=== PATIENT | female | born 1990 | race American Indian/Alaskan Native ===

== ENCOUNTER 2018-10-01 21:55 | Emergency (ER) | payer SELFPAY ==
[2018-10-01 22:14] VITALS: BP 107/55
== END 2018-10-01 23:00 | disposition left against medical advice (07) ==
LOC: ED 21:55
DX: R53.1 Weakness (principal); Z53.21 Procedure and treatment not carried out due to patient leaving prior to being seen by health care provider

== ENCOUNTER 2019-06-01 10:57 | Emergency (ER) | payer SELFPAY ==
[2019-06-01 11:06] VITALS: BP 140/103
--- NOTE | 2019-06-01 11:06 | Emergency Department Report ---
Blank Doc - Documentation Documentation: This is a 29-year-old female that presents with cough with some chest pain that is worsening with coughing. Also has congestions. This initial assessment/diagnostic orders/clinical plan/treatment(s) is/are subject to change based on patient's health status, clinical progression and re- assessment by fellow clinical providers in the ED. Further treatment and workup at subsequent clinical providers discretion. Patient/guardians urged not to elope from the ED as their condition may be serious if not clinically assessed and managed. Initial orders include: 1- Patient sent to [facility] for further evaluation and treatment 2- CXR
--- NOTE | 2019-06-01 11:44 | Emergency Department Report ---
HPI - General Chief Complaint: Dyspnea/Respdistress Time Seen by Provider: 06/01/19 11:04 - HPI HPI: 29 yo with non specific complaints of cough which causes chest pain and prolonged menses. She is new to the area and has no pcp. She is suppose to be on albuterol but ran out. BP 140/103 on admit- no hx HTN ED Past Medical Hx - Past Medical History Previous Medical History?: Yes Hx Asthma: Yes Additional medical history: obese - Surgical History Past Surgical History?: Yes Additional Surgical History: tubal ligation. C section - Family History Family history: no significant - Social History Smoking Status: Never Smoker Substance Use Type: None ED Review of Systems ROS: Stated complaint: CHEST PAIN/HEADACHES/FATIQUE Other details as noted in HPI Comment: All other systems reviewed and negative Physical Exam - Physical Exam Vital Signs: Vital Signs 06/01/19 11:03 Temperature 98.7 F Pulse Rate 97 H Respiratory 18 Rate Blood Pressure 140/103 O2 Sat by Pulse 99 Oximetry ED Course Vital Signs 06/01/19 11:03 Temperature 98.7 F Pulse Rate 97 H Respiratory 18 Rate Blood Pressure 140/103 O2 Sat by Pulse 99 Oximetry ED Medical Decision Making - Lab Data Result diagrams: 06/01/19 12:41 - Radiology Data Radiology results: report reviewed, image reviewed - Medical Decision Making Vital Signs 06/01/19 11:03 Temperature 98.7 F Pulse Rate 97 H Respiratory 18 Rate Blood Pressure 140/103 O2 Sat by Pulse 99 Oximetry - Differential Diagnosis htn- ro KD; ro preg/uti; ro anemia of DUB Critical care attestation.: If time is entered above; I have spent that time in minutes in the direct care of this critically ill patient, excluding procedure time. ED Disposition Clinical Impression: Abnormal menses Disposition: - TO HOME OR SELFCARE Is pt being admited?: No Does the pt Need Aspirin: No Condition: Stable Additional Instructions: PREG NEG BLOOD WORK AND XRAY NORMAL FOLLOW UP WITH PCP AND OR OBGYN IF YOUR PROBLEMS PERSIST MOTRIN OR TYLENOL FOR PAIN MONITOR YOUR BLOOD PRESSURE- IT WAS ELEVATED TODAY Referrals: CHLOE CESAR MD [Staff Physician] - 3-5 Days [facility] [Outside] - 3-5 Days KENISHA JAQUEZ MD [Staff Physician] - 3-5 Days Time of Disposition: 11:46
[2019-06-01 11:50] LABS: Bilirubin,Urine NEG (Negative); Blood,Urine NEG (Negative); Color,Urine Yellow (Yellow); Mucus,Urine FEW /HPF; Protein,Urine <15 mg/dL mg/dL (Negative); WBC,Urine < 1.0 /HPF (0.0-6.0)
[2019-06-01 11:57] LABS: HCG Qualitative,Urine Negative (Negative)
[2019-06-01 13:15] LABS: Hematocrit 36.8 % (30.3-42.9); Hemoglobin 11.4 gm/dl (10.1-14.3); Mean Corpuscular HGB Conc 31 % (30-34); Mean Corpuscular Volume 82 fl (79-97); Platelet Count 360 K/mm3 (140-440); Red Blood Count 4.47 M/mm3 (3.65-5.03); Red Cell Distribution Width 16.8 % (13.2-15.2)
--- NOTE | 2019-06-01 13:19 | XRay Report ---
CHEST 2 VIEWS INDICATION: cough. COMPARISON: None. FINDINGS: Support devices: None. Heart: Within normal limits. Lungs/Pleura: No acute air space or interstitial disease. No significant pleural effusion. IMPRESSION: No acute findings. Signer Name: Leon Rodriguez MD Signed: 06/01/2019 1:15 PM Workstation Name: [id number]
[2019-06-01 13:29] LABS: BUN/Creatinine Ratio 11; Blood Urea Nitrogen 8 mg/dL (7-17); Hemolysis Index 0
== END 2019-06-01 13:43 | disposition home or self-care (01) ==
LOC: ED 10:57
DX: N92.0 Excessive and frequent menstruation with regular cycle (principal); J45.909 Unspecified asthma, uncomplicated; Z98.51 Tubal ligation status; Z98.890 Other specified postprocedural states
CPT/HCPCS: 36415; 71046; 80048; 81001; 81025; 85027; 99283

== ENCOUNTER 2019-08-07 16:09 | Emergency (ER) | payer MEDICAID | END 2019-08-07 18:30 | disposition left against medical advice (07) | LOC: ED 16:09 | DX: R06.02 Shortness of breath (principal); R07.89 Other chest pain; Z53.21 Procedure and treatment not carried out due to patient leaving prior to being seen by health care provider ==

== ENCOUNTER 2019-08-12 19:00 | Emergency (ER) | payer MEDICAID ==
[2019-08-12 19:12] VITALS: BP 128/96
--- NOTE | 2019-08-12 21:38 | Emergency Department Report ---
ED Dysuria HPI - HPI Chief Complaint: Urogenital-Female Stated Complaint: UTI Time Seen by Provider: 08/12/19 21:28 Duration: 2 Days Location of Discomfort: Urethra (dysuria) Severity: Mild Symptoms: Dysuria: Yes, Frequency: Yes, Suprapubic Pain: No, Flank Pain: No, Fever: No, Hematuria: No, Abdominal Pain: No, Previous UTI's: Yes Other History: There is a 29-year-old female presents to the ED complaining of dysuria and urinary frequency 3 days. She states that she gets UTIs frequently. ED Review of Systems ROS: Stated complaint: UTI Other details as noted in HPI Comment: All other systems reviewed and negative ED Past Medical Hx - Past Medical History Previous Medical History?: Yes Hx Asthma: Yes Additional medical history: obese - Surgical History Past Surgical History?: Yes Additional Surgical History: tubal ligation. C section - Social History Smoking Status: Never Smoker Substance Use Type: None - Medications Home Medications: Home Medications Medication Instructions Recorded Confirmed Last Taken Type Ciprofloxacin HCl [Ciprofloxacin 500 mg PO Q12HR #14 tab 08/12/19 Unknown Rx TAB] Ibuprofen [Motrin] 800 mg PO Q8HR #30 tablet 08/12/19 Unknown Rx Dysuria Exam - Exam General: Vital signs noted. No distress. Alert and acting appropriately. Exam: Yes Moist Mucous Membranes, No CVA Tenderness, No Abdominal Tenderness, No Rigidity or Guarding ED Course Vital Signs 08/12/19 08/12/19 19:10 19:11 Temperature 98.0 F Pulse Rate 90 Respiratory 18 Rate Blood Pressure 128/96 O2 Sat by Pulse 98 Oximetry ED Medical Decision Making - Medical Decision Making 29-year-old female presents with dysuria. Patient will be treated for UTI since she gets a little grade currently. She did not have any abdomen tenderness or fever or nausea vomiting or any other symptoms. Patient understands instructions and states she will follow up with her primary care physician. At this time patient will be discharged home with antibiotics. Critical care attestation.: If time is entered above; I have spent that time in minutes in the direct care of this critically ill patient, excluding procedure time. ED Disposition Clinical Impression: Dysuria Disposition: DC-01 TO HOME OR SELFCARE Is pt being admited?: No Does the pt Need Aspirin: No Condition: Stable Instructions: Urinary Tract Infection in Women (ED) Additional Instructions: Follow up with pcp Prescriptions: Ciprofloxacin HCl [Ciprofloxacin TAB] 500 mg PO Q12HR #14 tab Ibuprofen [Motrin] 800 mg PO Q8HR #30 tablet [facility]Outside[facility] - 3-5 Days Forms: Accompanied Note, Work/School Release Form(ED) Time of Disposition: 21:43
== END 2019-08-12 22:00 | disposition home or self-care (01) ==
LOC: ED 19:00
DX: N39.0 Urinary tract infection, site not specified (principal); J45.909 Unspecified asthma, uncomplicated; Z98.51 Tubal ligation status; Z79.1 Long term (current) use of non-steroidal anti-inflammatories (NSAID)
CPT/HCPCS: 99281

== ENCOUNTER 2019-10-10 09:31 | Emergency (ER) | payer MEDICAID ==
[2019-10-10 09:50] VITALS: BP 129/94
[2019-10-10] MEDS ORDERED: ASPIRIN 325 MG TAB PO ONE (10:48)
--- NOTE | 2019-10-10 11:37 | XRay Report ---
CHEST 2 VIEWS INDICATION / CLINICAL INFORMATION: Chest Pain. COMPARISON: Chest x-ray on 06/01/2019. FINDINGS: SUPPORT DEVICES: None. HEART / MEDIASTINUM: No significant abnormality. LUNGS / PLEURA: No significant pulmonary or pleural abnormality. No pneumothorax. ADDITIONAL FINDINGS: No significant additional findings. IMPRESSION: 1. No acute findings. Signer Name: Kael Kaur MD Signed: 10/10/2019 11:32 AM Workstation Name: [id number]
[2019-10-10 12:11] LABS: Basophils # (Auto) 0.1 K/mm3 (0.0-0.1); Basophils % (Auto) 0.7 % (0.0-1.8); Eosinophils # (Auto) 0.2 K/mm3 (0.0-0.4); Eosinophils % (Auto) 2.2 % (0.0-4.3); Hematocrit 33.5 % (30.3-42.9); Hemoglobin 10.8 gm/dl (10.1-14.3); Lymphocytes # (Auto) 2.5 K/mm3 (1.2-5.4); Lymphocytes % (Auto) 25.9 % (13.4-35.0); Mean Corpuscular HGB Conc 32 % (30-34); Mean Corpuscular Volume 81 fl (79-97); Monocytes # (Auto) 0.5 K/mm3 (0.0-0.8); Platelet Count 333 K/mm3 (140-440); Red Blood Count 4.13 M/mm3 (3.65-5.03); Red Cell Distribution Width 17.1 % (13.2-15.2)
[2019-10-10 12:32] LABS: BUN/Creatinine Ratio 13; Blood Urea Nitrogen 8 mg/dL (7-17); Calcium 9.2 mg/dL (8.4-10.2); Hemolysis Index 6
[2019-10-10] MEDS ORDERED: dexAMETHasone 20 MG/5 ML VIAL IV ONE (14:21)
[2019-10-10] MEDS ORDERED: KETOROLAC 30 MG/1 ML INJ IV ONE (14:22)
--- NOTE | 2019-10-10 15:15 | Vascular Lab Report ---
DUPLEX DOPPLER LOWER EXTREMITY VEINS, BILATERAL INDICATION: pain, swelling. TECHNIQUE: Duplex doppler imaging was performed through the veins of both lower extremities using venous dede freddie and other maneuvers. COMPARISON: None available. FINDINGS: Right Common femoral vein: Negative. Right Superficial femoral vein: Negative. Right Popliteal vein: Negative. Right Calf veins: Negative. Left Common femoral vein: Negative. Left Superficial femoral vein: Negative. Left Popliteal vein: Negative. Left Calf veins: Negative. Additional findings: None. IMPRESSION: 1. No sonographic evidence for DVT in either lower extremity. Signer Name: Otis Beck MD Signed: 10/10/2019 1:11 PM Workstation Name: [id number]
[2019-10-10 15:23] LABS: Bilirubin,Urine NEG (Negative); Blood,Urine LG (Negative); Color,Urine Yellow (Yellow); Mucus,Urine FEW /HPF; Protein,Urine <15 mg/dL mg/dL (Negative); RBC,Urine > 182.0 /HPF (0.0-6.0); Urobilinogen,Urine < 2.0 mg/dL (<2.0)
[2019-10-10 15:27] LABS: HCG Qualitative,Urine Negative (Negative)
--- NOTE | 2019-10-10 15:39 | Emergency Department Report ---
ED Chest Pain HPI - General Chief Complaint: Chest Pain Stated Complaint: LFT LEG /LFT ANKLE SWELLING/PAIN Time Seen by Provider: 10/10/19 13:50 Source: patient Mode of arrival: Ambulatory Limitations: No Limitations - History of Present Illness Initial Comments: 29-year-old -[place] female with history of endometriosis presents with complaints of right-sided chest pain intermittently for 3 years and bilateral lower leg swelling 1 week. She denies any shortness of breath, history of DVT/PE, recent surgeries, oral contraceptives, smoking, or recent long travel. Patient states she has been evaluated multiple times for this chest pain and has not gotten any answers as to why she is having this chest pain. She states it feels like a stabbing type pain and hurts to touch. Patient states she is supposed to follow-up with a city sanitarian. Patient also states pain improves with ibuprofen. She denies any chest wall injuries or heavy lifting. She rates her pain as a 8/10 in severity and both her chest and legs MD Complaint: chest pain -: Sudden Severity scale (0 -10): 0 - Related Data Previous Rx's Medication Instructions Recorded Last Taken Type Ciprofloxacin HCl [Ciprofloxacin 500 mg PO Q12HR #14 tab 08/12/19 Unknown Rx TAB] Ibuprofen [Motrin] 800 mg PO Q8HR #30 tablet 08/12/19 Unknown Rx Allergies Allergy/AdvReac Type Severity Reaction Status Date / Time Penicillins Allergy Unknown Verified 08/07/19 16:26 Heart Score - HEART Score History: Slightly suspicious EKG: Normal Age: < 45 Risk factors: 1-2 risk factors Troponin: < normal limit HEART Score: 1 - Critical Actions Critical Actions: 0-3 pts:0.9-1.7%risk of adverse cardiac event.Candidate for discharge ED Review of Systems ROS: Stated complaint: LFT LEG /LFT ANKLE SWELLING/PAIN Other details as noted in HPI Comment: All other systems reviewed and negative Constitutional: denies: chills, fever Eyes: denies: vision change Respiratory: denies: cough, orthopnea, shortness of breath Cardiovascular: chest pain. denies: palpitations, dyspnea on exertion Gastrointestinal: denies: abdominal pain Genitourinary: frequency. denies: dysuria Musculoskeletal: denies: back pain Neurological: denies: headache, weakness, paresthesias Hematological/Lymphatic: denies: easy bleeding, easy bruising ED Past Medical Hx - Past Medical History Hx Asthma: Yes Additional medical history: endometriosis - Surgical History Past Surgical History?: Yes Additional Surgical History: tubal ligation. C section - Social History Smoking Status: Never Smoker Substance Use Type: None - Medications Home Medications: Home Medications Medication Instructions Recorded Confirmed Last Taken Type Ciprofloxacin HCl [Ciprofloxacin 500 mg PO Q12HR #14 tab 08/12/19 Unknown Rx TAB] Ibuprofen [Motrin] 800 mg PO Q8HR #30 tablet 08/12/19 Unknown Rx ED Physical Exam - General Limitations: No Limitations General appearance: alert, in no apparent distress - Head Head exam: Present: atraumatic, normocephalic - Eye Eye exam: Present: normal appearance. Absent: scleral icterus - ENT ENT exam: Present: mucous membranes moist - Neck Neck exam: Present: normal inspection - Respiratory Respiratory exam: Present: normal lung sounds bilaterally. Absent: respiratory distress - Cardiovascular Cardiovascular Exam: Present: regular rate, normal rhythm. Absent: systolic murmur, diastolic murmur, rubs, gallop - GI/Abdominal GI/Abdominal exam: Present: soft, normal bowel sounds - Extremities Exam Extremities exam: Present: full ROM, pedal edema (mild bilateral), calf tenderness (bilateral with mild nonpitting edema; no erythema noted; normal pedal pulses palpated bilaterally) - Back Exam Back exam: Present: normal inspection. Absent: CVA tenderness (R), CVA tenderness (L) - Neurological Exam Neurological exam: Present: alert, oriented X3, normal gait - Psychiatric Psychiatric exam: Present: normal affect, normal mood - Skin Skin exam: Present: warm, dry, intact, normal color. Absent: rash ED Course Vital Signs 10/10/19 09:49 Temperature 98.2 F Pulse Rate 82 Respiratory 16 Rate Blood Pressure 129/94 [Right] O2 Sat by Pulse 99 Oximetry ED Medical Decision Making - Lab Data Result diagrams: 10/10/19 11:46 10/10/19 11:46 Lab Results 10/10/19 10/10/19 10/10/19 Range/Units 11:46 11:46 13:45 WBC 9.7 (4.5-11.0) K/mm3 RBC 4.13 (3.65-5.03) M/mm3 Hgb 10.8 (10.1-14.3) gm/dl Hct 33.5 (30.3-42.9) % MCV 81 (79-97) fl MCH 26 L (28-32) pg MCHC 32 (30-34) % RDW 17.1 H (13.2-15.2) % Plt Count 333 (140-440) K/mm3 Lymph % (Auto) 25.9 (13.4-35.0) % [place] % (Auto) 5.0 (0.0-7.3) % Eos % (Auto) 2.2 (0.0-4.3) % Baso % (Auto) 0.7 (0.0-1.8) % Lymph # 2.5 (1.2-5.4) K/mm3 [place]rie # 0.5 (0.0-0.8) K/mm3 Eos # 0.2 (0.0-0.4) K/mm3 Baso # 0.1 (0.0-0.1) K/mm3 Seg Neutrophils % 66.2 (40.0-70.0) % Seg Neutrophils # 6.4 (1.8-7.7) K/mm3 Sodium 138 (137-145) mmol/L Potassium 3.9 (3.6-5.0) mmol/L Chloride 101.1 (98-107) mmol/L Carbon Dioxide 24 (22-30) mmol/L Anion Gap 17 mmol/L BUN 8 (7-17) mg/dL Creatinine 0.6 L (0.7-1.2) mg/dL Estimated GFR > 60 ml/min BUN/Creatinine Ratio 13 % Glucose 72 (65-100) mg/dL Calcium 9.2 (8.4-10.2) mg/dL Troponin T < 0.010 < 0.010 (0.00-0.029) ng/mL Urine Color (Yellow) Urine Turbidity (Clear) Urine pH (5.0-7.0) Ur Specific [place] (1.003-1.030) Urine Protein (Negative) mg/dL Urine Glucose (UA) (Negative) mg/dL Urine Ketones (Negative) mg/dL Urine Blood (Negative) Urine Nitrite (Negative) Urine Bilirubin (Negative) Urine Urobilinogen (<2.0) mg/dL Ur Leukocyte Esterase (Negative) Urine WBC (Auto) (0.0-6.0) /HPF Urine RBC (Auto) (0.0-6.0) /HPF U Epithel Cells (Auto) (0-13.0) /HPF Urine Mucus /HPF Urine Yeast (Budding) /HPF Urine HCG, Qual (Negative) 10/10/19 Range/Units 15:09 WBC (4.5-11.0) K/mm3 RBC (3.65-5.03) M/mm3 Hgb (10.1-14.3) gm/dl Hct (30.3-42.9) % MCV (79-97) fl MCH (28-32) pg MCHC (30-34) % RDW (13.2-15.2) % Plt Count (140-440) K/mm3 Lymph % (Auto) (13.4-35.0) % Erie % (Auto) (0.0-7.3) % Eos % (Auto) (0.0-4.3) % Baso % (Auto) (0.0-1.8) % Lymph # (1.2-5.4) K/mm3 [place] # (0.0-0.8) K/mm3 Eos # (0.0-0.4) K/mm3 Baso # (0.0-0.1) K/mm3 Seg Neutrophils % (40.0-70.0) % Seg Neutrophils # (1.8-7.7) K/mm3 Sodium (137-145) mmol/L Potassium (3.6-5.0) mmol/L Chloride (98-107) mmol/L Carbon Dioxide (22-30) mmol/L Anion Gap mmol/L BUN (7-17) mg/dL Creatinine (0.7-1.2) mg/dL Estimated GFR ml/min BUN/Creatinine Ratio % Glucose (65-100) mg/dL Calcium (8.4-10.2) mg/dL Troponin T (0.00-0.029) ng/mL Urine Color Yellow (Yellow) Urine Turbidity Slightly-cloudy (Clear) Urine pH 7.0 (5.0-7.0) Ur Specific [place] 1.012 (1.003-1.030) Urine Protein <15 mg/dl (Negative) mg/dL Urine Glucose (UA) Neg (Negative) mg/dL Urine Ketones Neg (Negative) mg/dL Urine Blood Lg (Negative) Urine Nitrite Neg (Negative) Urine Bilirubin Neg (Negative) Urine Urobilinogen < 2.0 (<2.0) mg/dL Ur Leukocyte Esterase Tr (Negative) Urine WBC (Auto) 53.0 H (0.0-6.0) /HPF Urine RBC (Auto) > 182.0 (0.0-6.0) /HPF U Epithel Cells (Auto) 3.0 (0-13.0) /HPF Urine Mucus Few /HPF Urine Yeast (Budding) 2+ /HPF Urine HCG, Qual Negative (Negative) - Radiology Data Radiology results: report reviewed DUPLEX DOPPLER LOWER EXTREMITY VEINS, BILATERAL INDICATION: pain, swelling. TECHNIQUE: Duplex doppler imaging was performed through the veins of both lower extremities using venous compression and other maneuvers. COMPARISON: None available. FINDINGS: Right Common femoral vein: Negative. Right Superficial femoral vein: Negative. Right Popliteal vein: Negative. Right Calf veins: Negative. Left Common femoral vein: Negative. Left Superficial femoral vein: Negative. Left Popliteal vein: Negative. Left Calf veins: Negative. Additional findings: None. IMPRESSION: 1. No sonographic evidence for DVT in either lower extremity. CHEST 2 VIEWS INDICATION / CLINICAL INFORMATION: Chest Pain. COMPARISON: Chest x-ray on 06/01/2019. FINDINGS: SUPPORT DEVICES: None. HEART / MEDIASTINUM: No significant abnormality. LUNGS / PLEURA: No significant pulmonary or pleural abnormality. No pneumothorax. ADDITIONAL FINDINGS: No significant additional findings. IMPRESSION: 1. No acute findings. Critical care attestation.: If time is entered above; I have spent that time in minutes in the direct care of this critically ill patient, excluding procedure time. ED Disposition Clinical Impression: Localized swelling of both lower legs, Costochondritis UTI (urinary tract infection) Qualifiers: Urinary tract infection type: site unspecified Hematuria presence: without hematuria Qualified Code(s): N39.0 - Urinary tract infection, site not specified Disposition: ELOPED Is pt being admited?: No Condition: Stable Referrals: PRIMARY CARE, [Primary Care Provider] - 3-5 Days
== END 2019-10-10 15:40 | disposition left against medical advice (07) ==
LOC: ED 09:31
DX: M94.0 Chondrocostal junction syndrome [Tietze] (principal); N39.0 Urinary tract infection, site not specified; J45.909 Unspecified asthma, uncomplicated; Z98.51 Tubal ligation status; Z79.899 Other long term (current) drug therapy; Z88.0 Allergy status to penicillin
CPT/HCPCS: 36415; 71046; 80048; 81001; 81025; 84484; 85025; 87086; 93005; 93010; 93970; J1100; J1885

== ENCOUNTER 2019-10-11 03:07 | Emergency (ER) | payer MEDICAID ==
--- NOTE | 2019-10-11 07:38 | Emergency Department Report ---
ED General Adult HPI - General Chief complaint: Chest Pain Stated complaint: SWELLING LT AND RT LEGS AND FEET Time Seen by Provider: 10/11/19 07:10 Source: patient Mode of arrival: Ambulatory Limitations: No Limitations - History of Present Illness Initial comments: This is a 29-year-old -[place] female who presents to the emergency room with bilateral lower extremity edema intermittent shortness of breath that is worse at night for 1 week. No significant past medical history of endometriosis. Patient states she was seen in this emergency room yesterday but could not stay for labs and imaging results. Patient states shortness of breath is resolved he usually only at night. She denies chest pain, palpitations, cough, fever, chills, numbness or tingling, DVT/PE, recent surgeries, oral contraceptives, smoking, or recent injury. Onset/Timin -: week(s) Location: lower extremity Associated Symptoms: shortness of breath Treatments Prior to Arrival: none - Related Data Previous Rx's Medication Instructions Recorded Last Taken Type Ciprofloxacin HCl [Ciprofloxacin 500 mg PO Q12HR #14 tab 08/12/19 Unknown Rx TAB] Ibuprofen [Motrin] 800 mg PO Q8HR #30 tablet 08/12/19 Unknown Rx Sulfamethoxazole/Trimethoprim 1 each PO BID #6 tablet 10/11/19 Unknown Rx [Bactrim DS TAB] Allergies Allergy/AdvReac Type Severity Reaction Status Date / Time Penicillins Allergy Unknown Verified 08/07/19 16:26 ED Review of Systems ROS: Stated complaint: SWELLING LT AND RT LEGS AND FEET Other details as noted in HPI Constitutional: denies: chills, fever Respiratory: denies: cough, shortness of breath, wheezing Cardiovascular: edema (bilateral lower extremity). denies: chest pain, palpitations Gastrointestinal: denies: abdominal pain, nausea, diarrhea Genitourinary: denies: discharge Skin: denies: rash, lesions Neurological: denies: headache, weakness, paresthesias Psychiatric: denies: anxiety, depression ED Past Medical Hx - Past Medical History Hx Asthma: Yes Additional medical history: endometriosis - Surgical History Additional Surgical History: tubal ligation. C section - Social History Smoking Status: Current Every Day Smoker Substance Use Type: None - Medications Home Medications: Home Medications Medication Instructions Recorded Confirmed Last Taken Type Ciprofloxacin HCl [Ciprofloxacin 500 mg PO Q12HR #14 tab 08/12/19 Unknown Rx TAB] Ibuprofen [Motrin] 800 mg PO Q8HR #30 tablet 08/12/19 Unknown Rx Sulfamethoxazole/Trimethoprim 1 each PO BID #6 tablet 10/11/19 Unknown Rx [Bactrim DS TAB] ED Physical Exam - General Limitations: No Limitations General appearance: alert, in no apparent distress, obese (morbidly) - ENT ENT exam: Present: mucous membranes moist - Respiratory Respiratory exam: Present: normal lung sounds bilaterally. Absent: respiratory distress - Cardiovascular Cardiovascular Exam: Present: regular rate, normal rhythm. Absent: systolic murmur, diastolic murmur, rubs, gallop - GI/Abdominal GI/Abdominal exam: Present: soft, normal bowel sounds. Absent: distended, tenderness, guarding, rebound, rigid - Extremities Exam Extremities exam: Present: full ROM, normal capillary refill (brisk), pedal edema (mild nonpitting edema, pedal pulses +2). Absent: joint swelling, calf tenderness - Neurological Exam Neurological exam: Present: alert, oriented X3, normal gait - Psychiatric Psychiatric exam: Present: normal affect, normal mood - Skin Skin exam: Present: warm, dry, intact, normal color. Absent: rash ED Course Vital Signs 10/11/19 10/11/19 03:14 03:15 Temperature 97.8 F 97.8 F Pulse Rate 72 71 Respiratory 18 16 Rate Blood Pressure 138/91 138/91 O2 Sat by Pulse 100 99 Oximetry ED Medical Decision Making - Radiology Data Radiology results: report reviewed - Medical Decision Making This is a 29-year-old -[place] female who presents to the emergency room with bilateral lower extremity edema. Vitals are stable and in no acute distress. Patient seen on yesterday but unable to stay for results. Labs, Doppler of bilateral lower extremity, and chest x-ray review. Signs of acute cystitis on urinalysis, troponins 2 negative, all of the labs are remarkable. Chest x-ray negative for acute cardiopulmonary findings, and No sonographic evidence for DVT in either lower extremity. Patient denies shortness of breath, chest pain, or palpitations. Patient will be treated for acute cystitis. Referral to PCP for follow-up. Strict return instructions given. Patient agreed with ER discharge plans. Patient discharged home stable. Return to work tomorrow. Critical care attestation.: If time is entered above; I have spent that time in minutes in the direct care of this critically ill patient, excluding procedure time. ED Disposition Clinical Impression: Localized swelling of both lower legs UTI (urinary tract infection) Qualifiers: Urinary tract infection type: acute cystitis Hematuria presence: with hematuria Qualified Code(s): N30.01 - Acute cystitis with hematuria Disposition: TO HOME OR SELFCARE Is pt being admited?: No Condition: Stable Instructions: Urinary Tract Infection in Women (ED) Additional Instructions: Increase fluid intake daily to 1-2 L. Complete full course of antibiotics as prescribed. Follow up with one of the primary care doctor's provided below. Return to the emergency room with worsening symptoms, such as chest pain, shortness of breath, or palpitations. Prescriptions: Sulfamethoxazole/Trimethoprim [Bactrim DS TAB] 1 each PO BID #6 tablet Referrals: EARL TEJEDA MD [Staff Physician] - 3-5 Days CHLOE CESAR MD [Staff Physician] - 3-5 Days Forms: Work/School Release Form(ED), Accompanied Note Time of Disposition: 08:15
[2019-10-11 08:25] VITALS: BP 128/88
== END 2019-10-11 08:25 | disposition home or self-care (01) ==
LOC: ED 03:07
DX: R22.43 Localized swelling, mass and lump, lower limb, bilateral (principal); N39.0 Urinary tract infection, site not specified; F17.200 Nicotine dependence, unspecified, uncomplicated; J45.909 Unspecified asthma, uncomplicated; Z98.51 Tubal ligation status; Z88.0 Allergy status to penicillin
CPT/HCPCS: 99282

== ENCOUNTER 2019-10-28 23:34 | Emergency (ER) | payer MEDICAID ==
[2019-10-28 23:44] VITALS: BP 120/86
== END 2019-10-29 | disposition left against medical advice (07) ==
LOC: ED 23:34
DX: J45.909 Unspecified asthma, uncomplicated (principal); Z53.21 Procedure and treatment not carried out due to patient leaving prior to being seen by health care provider

== ENCOUNTER 2020-01-30 11:12 | Emergency (ER) | payer MEDICAID ==
[2020-01-30 11:17] VITALS: BP 121/97
--- NOTE | 2020-01-30 12:53 | Emergency Department Report ---
Eye Injury/Foreign Body - HPI Duration: Today Eye Location: Right Eye Symptoms: Eye Pain: Yes, Blurred Vision: Yes, Eye Redness: Yes, Used Eye Protection: No, Contact Lens Use: No, Recalls Injury: Yes, Photophobia: Yes Other History: 29-year-old -[place] female presents to the emergency room for right eye pain since last night. Patient states that she poked herself in the eye last night with her fingernail. Patient states that she has had a corneal abrasion in the past and it feels the same. Patient does admit to pain, blurred vision photophobia. Patient states that she had the taken over today to come to the emergency room. ED Review of Systems ROS: Stated complaint: CORNEA ABRASION Other details as noted in HPI ED Past Medical Hx - Past Medical History Previous Medical History?: Yes Hx Asthma: Yes Additional medical history: endometriosis - Surgical History Past Surgical History?: Yes Additional Surgical History: tubal ligation. C section - Social History Smoking Status: Never Smoker Substance Use Type: None - Medications Home Medications: Home Medications Medication Instructions Recorded Confirmed Last Taken Type Ciprofloxacin HCl [Ciprofloxacin 500 mg PO Q12HR #14 tab 08/12/19 Unknown Rx TAB] Ibuprofen [Motrin] 800 mg PO Q8HR #30 tablet 08/12/19 Unknown Rx Sulfamethoxazole/Trimethoprim 1 each PO BID #6 tablet 10/11/19 Unknown Rx [Bactrim DS TAB] Erythromycin [Erythromycin Ophth 1 strip OD QID #1 1000units 01/30/20 Unknown Rx Oint] Ibuprofen [Motrin 800 MG tab] 800 mg PO Q8HR PRN #21 tablet 01/30/20 Unknown Rx traMADoL [Ultram 50 MG tab] 50 mg PO Q4HR PRN #12 tablet 01/30/20 Unknown Rx Eye Injury Exam - Exam General: Vital signs noted. No distress. Alert and acting appropriately. - Visual Acuity Right Eye Exam: Right EOMI, Right Fluorescein Uptake (slit lamp), Right Photophobia ED Course Vital Signs 01/30/20 11:13 Temperature 98.0 F Pulse Rate 99 H Respiratory 18 Rate Blood Pressure 121/97 O2 Sat by Pulse 100 Oximetry ED Medical Decision Making - Medical Decision Making 29-year-old -[place] female presents to the emergency room for right eye pain since last night. Patient states that she poked herself in the eye last night with her fingernail. Patient states that she has had a corneal abrasion in the past and it feels the same. Patient does admit to pain, blurred vision photophobia. Patient states that she had the taken over today to come to the e mergency room. Fluorescein exam shows that patient has a cornea of the right eye. Patient will be placed on erythromycin eye ointment tramadol and ibuprofen for pain management. Referral to ophthalmology. Critical care attestation.: If time is entered above; I have spent that time in minutes in the direct care of this critically ill patient, excluding procedure time. ED Disposition Clinical Impression: Corneal abrasion, right Disposition: [id number] TO HOME OR SELFCARE Is pt being admited?: No Does the pt Need Aspirin: No Condition: Stable Instructions: Corneal Abrasion (ED) Additional Instructions: Please use eyedrops as prescribed. Take pain medication as needed. It is very very important for you to follow-up with an mixed crop farmer I have listed several below for your convenience. Prescriptions: Erythromycin [Erythromycin Ophth Oint] 1 strip OD QID #1 1000units Ibuprofen [Motrin 800 MG tab] 800 mg PO Q8HR PRN #21 tablet PRN Reason: Pain , Severe (7-10) traMADoL [Ultram 50 MG tab] 50 mg PO Q4HR PRN #12 tablet PRN Reason: Pain Referrals: DENNYS KAT MD [Staff Physician] - 3-5 Days [facility] [Provider Group] - 3-5 Days [facility] [Provider Group] - 3-5 Days Forms: Work/School Release Form(ED)
[2020-01-30] MEDS ORDERED: TETRACAINE 0.5% OPHTH SOLN 4ML OU ONE (13:30)
[2020-01-30] MEDS ORDERED: BALANCED SALT IRRIG (BSS) OPHTH SOLN 15 ML OU ONE (13:30)
[2020-01-30] MEDS ORDERED: FLUORESCEIN 1 MG STRIP OP ONE (13:30)
== END 2020-01-30 14:04 | disposition home or self-care (01) ==
LOC: ED 11:12
DX: S05.01XA Injury of conjunctiva and corneal abrasion without foreign body, right eye, initial encounter (principal); J45.909 Unspecified asthma, uncomplicated; Z98.890 Other specified postprocedural states; Z98.51 Tubal ligation status; Z79.899 Other long term (current) drug therapy; Z88.0 Allergy status to penicillin; X58.XXXA Exposure to other specified factors, initial encounter; Y93.89 Activity, other specified; Y92.89 Other specified places as the place of occurrence of the external cause; Y99.8 Other external cause status
CPT/HCPCS: 99282; 99283